=== PATIENT | female | born 1995 | race Hispanic/Latino ===

== ENCOUNTER 2024-07-01 15:50 | Emergency (ER) | payer OTHER ==
[2024-07-01 16:32] LABS: #Basophils 0.04 10x3/uL (0.0-0.2); #Monocytes 0.34 10x3/uL (0.0-1.1); %Basophils 0.6 % (0.0-2.0); %Eosinophils 4.5 % (0.0-6.0); %Lymphocytes 53.6 % (18.0-47.0); %Monocytes 5.1 % (0.0-10.0); %Neutrophils 35.9 % (40.0-75.0); Hematocrit 44.1 % (34.9-44.5); Hemoglobin 14.5 g/dL (12.0-15.5); Mean Corpuscular HGB CONC 32.9 g/dL (32.0-36.0); Mean Corpuscular Hemoglobin 29.3 pg (27.0-33.0); Mean Corpuscular Volume 89.1 fL (81.6-98.3); Mean Platelet Volume 10.9 fL (7.4-10.4); Platelet Count 291 10x3/uL (150-450); Red Blood Cell (RBC) Count 4.95 10x6/uL (3.90-5.03); White Blood Cell (WBC) Count 6.7 10x3/uL (3.5-10.5)
[2024-07-01 16:37] LABS: BHCG - Serum Negative (NEGATIVE); Pregs Control Background? CLEAR/WHITE (CLR/WHITE); Pregs Control Bar Appear? YES (CONTROL BAR)
[2024-07-01] MEDS ORDERED: Acetaminophen 325 MG TAB ONE (16:37)
[2024-07-01] MEDS ORDERED: Ondansetron ODT 4 MG TAB ONE (16:37)
[2024-07-01 16:44] LABS: ALT (SGPT) 40 U/L (8-55); AST (SGOT) 63 U/L (5-34); Albumin 3.8 g/dL (3.5-5.0); Alkaline Phosphatase 97 U/L (40-110); Anion Gap 14 mmol/L (10-20); BUN (Urea Nitrogen) 16 mg/dL (7.0-18.7); Bilirubin, Total 0.9 mg/dL (0.2-1.2); Calc. Creatinine Clearance 0 mL/min (70-130); Calcium 9.6 mg/dL (7.8-10.44); Carbon Dioxide 25 mmol/L (22-29); Chloride 105 mmol/L (98-107); Estimated GFR 119; Globulin 3.7 g/dL (2.4-3.5); Glucose 109 mg/dL (70-105); Lipase 52 U/L (8-78); Potassium 3.9 mmol/L (3.5-5.1); Protein, Total 7.5 g/dL (6.0-8.3); Sodium 140 mmol/L (136-145)
[2024-07-01] MEDS ORDERED: Magnesium Citrate 300 ML BOT PO SCH (17:00)
[2024-07-01 17:04] LABS: Bilirubin Neg (Negative); Blood, Urine Negative (Negative); Clarity Clear (Clear); Glucose, Urine (Dipstick) Normal (Negative); Ketone, Urine Negative (Negative); Leukocyte 25 (Negative); Nitrite Negative (Negative); Protein, Urine (Dipstick) Negative (Neg-Trace)
[2024-07-01 17:20] LABS: Bacteria/HPF Rare-Few HPF (None Seen); CAUTI Indications for Culture Pelvic or flank pain; RBC/HPF None Seen HPF (0-3); Squamous Epithelial 0-3 HPF (0-3)
[2024-07-01 17:22] LABS: Urine Culture Reflex Yes Yes
== END 2024-07-01 18:03 | disposition home or self-care (01) ==
LOC: CSHERS 15:50
DX: K80.20 Calculus of gallbladder without cholecystitis without obstruction (principal); N39.0 Urinary tract infection, site not specified; F17.210 Nicotine dependence, cigarettes, uncomplicated
CPT/HCPCS: 76705; 80053; 81001; 83690; 84703; 85025; 87086; Q0162

== ENCOUNTER 2024-07-25 11:48 | Outpatient (CLI) | payer OTHER ==
[2024-07-25 12:29] LABS: #Basophils 0.03 10x3/uL (0.0-0.2); #Eosinophils 0.29 10x3/uL (0.0-0.5); #Monocytes 0.35 10x3/uL (0.0-1.1); #Neutrophils 2.01 10x3/uL (1.5-8.4); %Basophils 0.5 % (0.0-2.0); %Eosinophils 5.2 % (0.0-6.0); %Lymphocytes 51.4 % (18.0-47.0); %Monocytes 6.3 % (0.0-10.0); %Neutrophils 36.2 % (40.0-75.0); Hematocrit 37.9 % (34.9-44.5); Hemoglobin 12.9 g/dL (12.0-15.5); Mean Corpuscular Hemoglobin 30.4 pg (27.0-33.0); Mean Corpuscular Volume 89.2 fL (81.6-98.3); Mean Platelet Volume 10.4 fL (7.4-10.4); Platelet Count 269 10x3/uL (150-450); RBC Distribution Width 14.3 % (11.5-14.5); Red Blood Cell (RBC) Count 4.25 10x6/uL (3.90-5.03); White Blood Cell (WBC) Count 5.6 10x3/uL (3.5-10.5)
[2024-07-25 13:17] LABS: BHCG - Serum Negative (NEGATIVE); Pregs Control Background? CLEAR/WHITE (CLR/WHITE); Pregs Control Bar Appear? YES (CONTROL BAR)
[2024-07-25 13:24] LABS: ALT (SGPT) 23 U/L (8-55); AST (SGOT) 18 U/L (5-34); Albumin 4.1 g/dL (3.5-5.0); Alkaline Phosphatase 72 U/L (40-110); Anion Gap 14 mmol/L (10-20); BUN (Urea Nitrogen) 13 mg/dL (7.0-18.7); Bilirubin, Total 0.8 mg/dL (0.2-1.2); Calc. Creatinine Clearance 0 mL/min (70-130); Calcium 9.5 mg/dL (7.8-10.44); Carbon Dioxide 26 mmol/L (22-29); Chloride 102 mmol/L (98-107); Estimated GFR 119; Globulin 3.1 g/dL (2.4-3.5); Glucose 90 mg/dL (70-105); Protein, Total 7.2 g/dL (6.0-8.3); Sodium 138 mmol/L (136-145)
== END 2024-07-25 11:49 | disposition home or self-care (01) ==
LOC: CSHLAB 11:48
PROVIDERS: ATTEND Specialist
DX: Z01.812 Encounter for preprocedural laboratory examination (principal); K80.20 Calculus of gallbladder without cholecystitis without obstruction
CPT/HCPCS: 80053; 84703; 85025

== ENCOUNTER 2024-07-28 06:51 | Day surgery (SDC) | payer OTHER ==
[2024-07-25 12:05] VITALS: BMI 30.7
[2024-07-28] MEDS ORDERED: Ketorolac Tromethamine 30 MG (1 mL) VIAL ONE ×2 (07:08→08:28)
[2024-07-28] MEDS ORDERED: Acetaminophen 500 MG TAB ONE (07:08)
[2024-07-28] MEDS ORDERED: Indocyanine Green 25 MG/10 ML VIAL ONE (08:22)
[2024-07-28] MEDS ORDERED: Bupivacaine/Epinephrine 0.25% 30 ML VIAL ONE (08:23)
[2024-07-28] MEDS ORDERED: Lidocaine 1% PF 5 ML VIAL ONE (08:28)
[2024-07-28] MEDS ORDERED: Ondansetron PF 4 MG/2 ML Vial ONE ×2 (08:28→11:25)
[2024-07-28] MEDS ORDERED: Dexamethasone 20 MG/5 ML VIAL ONE (08:28)
[2024-07-28] MEDS ORDERED: PROPOFOL 20 ML ONE (08:28)
[2024-07-28] MEDS ORDERED: SUGAMMADEX SODIUM 200 MG/2 ML VIAL ONE (08:28)
[2024-07-28] MEDS ORDERED: Rocuronium Bromide 10 MG/ML (10ML VIAL) ONE (08:29)
[2024-07-28] MEDS ORDERED: fentaNYL 50 mcg/mL 1 mL Vial ONE ×2 (08:29→10:52)
[2024-07-28] MEDS ORDERED: Midazolam HCl 2 mg/2 ml Vial ONE (08:29)
[2024-07-28] MEDS ORDERED: CEFAZOLIN 2 GM VIAL ONE (08:33)
[2024-07-28] MEDS ORDERED: Dexmedetomidine 200 MCG/2 ML VIAL ONE (08:33)
[2024-07-28] MEDS ORDERED: ePHEDrine Sulfate 50 MG/10 ML VIAL ONE (10:26)
[2024-07-28] MEDS ORDERED: HYDROcodone/Acetaminophen 5/325 mg Tablet ONE ×2 (11:22→12:44)
[2024-07-28] MEDS ORDERED: Promethazine HCl 25 MG/ML VIAL ONE (11:42)
== END 2024-07-28 13:00 | disposition home or self-care (01) ==
LOC: CSHSDC 06:51
PROVIDERS: ATTEND Specialist
PROC: 0FT44ZZ Resection of Gallbladder, Percutaneous Endoscopic Approach (ICD-10-PCS; principal; 2024-07-28)
DX: K80.10 Calculus of gallbladder with chronic cholecystitis without obstruction (principal); Z98.890 Other specified postprocedural states; Z87.891 Personal history of nicotine dependence; Z88.0 Allergy status to penicillin
CPT/HCPCS: 88304; C1889; J1100; J1885; J2250; J2405; J2550; J2704; J3010